=== PATIENT | female | born 1960 | race Caucasian/White ===

== ENCOUNTER → 2017-07-02 | Outpatient (CLI) | payer OTHER | LOC: M.RAD 09:23 | DX: Z12.31 Encounter for screening mammogram for malignant neoplasm of breast (principal) ==

== ENCOUNTER → 2018-03-18 | Outpatient (CLI) | payer OTHER | LOC: M.MRI 14:03 | DX: H93.12 Tinnitus, left ear (principal); E03.9 Hypothyroidism, unspecified ==

== ENCOUNTER → 2018-04-04 | Outpatient (CLI) | payer OTHER ==
[2018-04-04 10:45] LABS: ALBUMIN 3.7 g/dL (3.4-5.0); ALKALINE PHOSPHATASE 73 U/L (46-116); ANION GAP 6 mmol/L (7-16); BUN 17 mg/dL (7-18); CALCIUM 8.7 mg/dL (8.5-10.1); CHLORIDE 107 mmol/L (98-107); CHOLESTEROL 227 mg/dL (<200); CO2 30 mmol/L (21-32); CREATININE 0.8 mg/dL (0.6-1.3); GLUCOSE 95 mg/dL (70-99); HDL CHOLESTEROL 93 mg/dL (>40); LDL CHOLESTEROL 128 mg/dL (<100); POTASSIUM 4.3 mmol/L (3.5-5.1); SGOT 22 U/L (15-37); SGPT 25 U/L (30-65); SODIUM 143 mmol/L (136-145); TC:HDL 2.4 Ratio (Not establshd); TOTAL BILIRUBIN 0.5 mg/dL (<0.1-1.0); TOTAL PROTEIN 7.3 g/dL (6.4-8.2); TRIGLYCERIDE 34 mg/dL (<150); VLDL 7 mg/dL (<40)
[2018-04-04 10:46] LABS: SERUM ASSESSMENT Clear
== END ==
LOC: M.LAB 10:19
PROVIDERS: Family Medicine
DX: Z00.00 Encounter for general adult medical examination without abnormal findings (principal)

== ENCOUNTER → 2018-06-13 | Outpatient (CLI) | payer OTHER | LOC: M.RAD 14:56 | DX: R51 Headache (principal); R42 Dizziness and giddiness ==

== ENCOUNTER → 2019-03-31 | Outpatient (CLI) | payer OTHER ==
[2019-03-31 11:29] LABS: ABSOLUTE EOSINOPHILS 0.2 thou/uL (0.0-0.7); ABSOLUTE LYMPHOCYTES 1.6 thou/uL (0.8-5.3); ABSOLUTE MONOCYTES 0.6 thou/uL (0.0-1.2); ABSOLUTE NEUTROPHILS 3.5 thou/uL (1.6-8.1); BASOPHILS 0.6 %; EOSINOPHILS 2.7 %; HEMATOCRIT 38.5 % (37.0-47.0); LYMPHOCYTES 27.4 %; MCH 31.5 pg (26.0-34.0); MCHC 33.7 g/dL (28.0-37.0); MCV 93.4 fL (80.0-100.0); MONOCYTES 9.5 %; MPV 7.7 fl. (7.2-11.1); NUCLEATED RBCS 0 /100WBC; PLATELET COUNT* 286 thou/uL (150-400); POLYS 59.8 %; RBC 4.12 mil/uL (4.20-5.00); RDW-CV 12.4 % (10.5-14.5); WBC 5.8 thou/uL (4.0-11.0)
[2019-03-31 11:41] LABS: ALBUMIN 3.5 g/dL (3.4-5.0); CALCIUM 9.2 mg/dL (8.5-10.1); CREATININE 0.8 mg/dL (0.6-1.3); POTASSIUM 4.2 mmol/L (3.5-5.1); TOTAL BILIRUBIN 0.3 mg/dL (<0.1-1.0); TOTAL PROTEIN 7.2 g/dL (6.4-8.2)
== END ==
LOC: M.LAB 10:44
PROVIDERS: Family Medicine
DX: E03.9 Hypothyroidism, unspecified (principal); H93.13 Tinnitus, bilateral; R51 Headache

== ENCOUNTER → 2019-05-29 | Outpatient (CLI) | payer OTHER | LOC: M.RAD 11:00 | DX: Z12.31 Encounter for screening mammogram for malignant neoplasm of breast (principal) ==

== ENCOUNTER → 2020-06-20 | Outpatient (CLI) | payer OTHER | LOC: M.RAD 14:59 | PROVIDERS: ATTEND Family Medicine | DX: Z12.31 Encounter for screening mammogram for malignant neoplasm of breast (principal) ==

== ENCOUNTER → 2020-11-27 | Outpatient (CLI) | payer OTHER ==
[2020-11-27 09:44] LABS: ALBUMIN 3.7 g/dL (3.4-5.0); ALKALINE PHOSPHATASE 75 U/L (46-116); BUN 17 mg/dL (7-18); CHOLESTEROL 214 mg/dL (<200); CO2 32 mmol/L (21-32); CREATININE 0.8 mg/dL (0.6-1.3); GLUCOSE 86 mg/dL (70-99); HDL CHOLESTEROL 82 mg/dL (>40); LDL CHOLESTEROL 122 mg/dL (<100); SGOT 23 U/L (15-37); SGPT 30 U/L (30-65); TC:HDL 2.6 Ratio (Not establshd); TOTAL BILIRUBIN 0.4 mg/dL (<0.1-1.0); TOTAL PROTEIN 7.3 g/dL (6.4-8.2); TRIGLYCERIDE 51 mg/dL (<150); VLDL 10 mg/dL (<40)
[2020-11-27 09:57] LABS: ANION GAP 5 mmol/L (7-16); CHLORIDE 105 mmol/L (98-107); POTASSIUM 4.7 mmol/L (3.5-5.1); SODIUM 142 mmol/L (136-145)
[2020-11-27 09:58] LABS: SERUM ASSESSMENT Clear
== END ==
LOC: M.LAB 09:17
PROVIDERS: ATTEND Family Medicine
DX: M51.17 Intervertebral disc disorders with radiculopathy, lumbosacral region (principal); E03.9 Hypothyroidism, unspecified

== ENCOUNTER → 2020-12-04 | Outpatient (CLI) | payer OTHER | LOC: M.MRI 14:35 | PROVIDERS: ATTEND Family Medicine | DX: M51.16 Intervertebral disc disorders with radiculopathy, lumbar region (principal); E03.9 Hypothyroidism, unspecified ==

== ENCOUNTER 2021-06-24 13:06 | Inpatient (IN) | payer OTHER ==
[~2021-06-24] VITALS: Ht 170.2 cm; Wt 77.1 kg
[2021-06-24 13:20] VITALS: BP 153/84
[2021-06-24] MEDS ORDERED: LEVO-T100 MCG PO (13:23)
[2021-06-24] MEDS ORDERED: SUPER THERAVIT1 EACH PO (13:23)
[2021-06-24] MEDS ORDERED: IBUPROFEN 600600 M1 PO (13:24)
--- NOTE | 2021-06-24 13:44 | EKG ---
[place] [address] ELECTROCARDIOGRAM REPORT Name: PEDRO JI Room: [facility].#: [id number] Admission: Attend Phys: Discharge: Date of : 60 Date of Service: 06/24/21 1330 Report #: [id number] THIS REPORT FOR: //name// [facility] ED Test Date: 2021-06-24 Test Time: 13:30:27 Pat Name: PEDRO JI Department: Room: Gender: F Laboratory Clerk: IGNACIA : 1960 Requested By: Davie Nance Order Number: [id number] MD: Ramiro Garrison Measurements Intervals [place] Rate: 68 P: 61 HI: 130 QRS: 38 QRSD: 84 T: 33 QT: 376 QTc: 400 Interpretive Statements Sinus rhythm Consider right atrial enlargement Borderline low voltage, extremity leads No previous ECG available for comparison Electronically Signed On 06-24-2021 13:43:58 [employer] by Ramiro Garrison [email or web address] <ELECTRONICALLY SIGNED> By: Ramiro Garrison MD, [facility] 06/24/21 1343 1330 Ramiro Garrison MD, FACC /EPI
[2021-06-24 13:45] LABS: ABSOLUTE EOSINOPHILS 0.1 thou/uL (0.0-0.7); ABSOLUTE LYMPHOCYTES 1.6 thou/uL (0.8-5.3); ABSOLUTE MONOCYTES 0.5 thou/uL (0.0-1.2); ABSOLUTE NEUTROPHILS 6.7 thou/uL (1.6-8.1); BASOPHILS 0.6 %; EOSINOPHILS 0.6 %; HEMATOCRIT 41.1 % (37.0-47.0); HEMOGLOBIN 13.9 gm/dL (12.0-15.0); MCH 32.2 pg (26.0-34.0); MCHC 33.7 g/dL (28.0-37.0); MCV 95.5 fL (80.0-100.0); MONOCYTES 6.1 %; MPV 7.3 fl. (7.2-11.1); NUCLEATED RBCS 0 /100WBC; PLATELET COUNT* 294 thou/uL (150-400); POLYS 74.7 %; RBC 4.31 mil/uL (4.20-5.00); RDW-CV 12.9 % (10.5-14.5); WBC 8.9 thou/uL (4.0-11.0)
[2021-06-24 13:58] LABS: CREATININE 0.8 mg/dL (0.6-1.3)
[2021-06-24 14:06] LABS: URINE BILIRUBIN NEGATIVE (Negative); URINE BLOOD NEGATIVE (Negative); URINE CLARITY CLEAR; URINE COLOR YELLOW; URINE GLUCOSE-RANDOM NEGATIVE (Negative); URINE KETONES NEGATIVE (Negative); URINE LEUKOCYTES-REFLEX NEGATIVE (Negative); URINE NITRITE-REFLEX NEGATIVE (Negative); URINE PROTEIN NEGATIVE (Negative); URINE UROBILINOGEN 0.2 E.U./dl (0.2-1.0)
[2021-06-24 14:06] LABS: APTT 23.7 Seconds (25.0-31.3); PROTIME 10.5 Seconds (9.20-11.50)
[2021-06-24 14:08] LABS: ALBUMIN 3.7 g/dL (3.4-5.0); TOTAL BILIRUBIN 0.3 mg/dL (<0.1-1.0); TOTAL PROTEIN 7.5 g/dL (6.4-8.2)
[2021-06-24 17:05] VITALS: BP 127/55
[2021-06-24 19:24] VITALS: BP 141/73
[2021-06-24 20:00] VITALS: BP 138/70
[2021-06-24] MEDS ORDERED: MAGNESIUM250 M1 PO (20:56)
[2021-06-24] MEDS ORDERED: METRONIDAZOLE500 M4 (20:56)
[2021-06-24] MEDS ORDERED: METRONIDAZOLE500 M4 PO (20:57)
[2021-06-25] VITALS (7 sets, daily range): BP systolic 90–115; BP diastolic 40–68
[2021-06-25 04:53] LABS: ABSOLUTE EOSINOPHILS 0.1 thou/uL (0.0-0.7); ABSOLUTE LYMPHOCYTES 1.9 thou/uL (0.8-5.3); ABSOLUTE MONOCYTES 0.5 thou/uL (0.0-1.2); ABSOLUTE NEUTROPHILS 3.6 thou/uL (1.6-8.1); BASOPHILS 0.4 %; EOSINOPHILS 2.1 %; HEMATOCRIT 37.3 % (37.0-47.0); HEMOGLOBIN 12.5 gm/dL (12.0-15.0); LYMPHOCYTES 30.6 %; MCHC 33.5 g/dL (28.0-37.0); MCV 95.6 fL (80.0-100.0); MONOCYTES 7.6 %; MPV 7.1 fl. (7.2-11.1); NUCLEATED RBCS 0 /100WBC; PLATELET COUNT* 258 thou/uL (150-400); POLYS 59.3 %; RBC 3.91 mil/uL (4.20-5.00); RDW-CV 12.5 % (10.5-14.5); WBC 6.1 thou/uL (4.0-11.0)
[2021-06-25 05:12] LABS: CALCIUM 8.2 mg/dL (8.5-10.1); CREATININE 0.8 mg/dL (0.6-1.3)
--- NOTE | 2021-06-25 16:27 | 2DMMODE ---
[place] [address] 2 D/M-MODE ECHOCARDIOGRAM Name: PEDRO JI Room: [address] IN [facility]#: [id number] Admission: 06/24/21 Attend Phys: Codey Santana, Discharge: Date of : 60 Date of Service: 06/25/21 1627 Report #: [id number] THIS REPORT FOR: cc: Tala Chung,Ramiro Kumar MD [facility] ~ APPROVED REPORT Study performed: 06/25/2021 15:10:33 EXAM: Comprehensive 2D, Doppler, and color-flow Echocardiogram Patient Location: In-Patient Room #: 229 Status: routine BSA: 1.88 HR: 61 bpm BP: 104/40 mmHg Rhythm: NSR Other Information Study Quality: Good Indications dizziness 2D Dimensions IVSd: 9.62 (7-11mm) LVOT Diam: 20.14 (18-24mm) LVDd: 40.40 mm PWd: 9.44 (7-11mm) Ascending Ao: 29.44 (22-36mm) LVDs: 24.56 (25-40mm) Aortic Root: 30.33 mm Volumes Left Atrial Volume (Systole) LA ESV Index: 17.90 mL/m2 Aortic Valve AoV Peak Geovanny.: 1.34 m/s AO Peak Gr.: 7.23 mmHg LVOT Max P.57 mmHg AO Mean Gr.: 3.86 mmHg LVOT Mean P.01 mmHg LVOT Max V: 1.07 m/s AO V2 VTI: 28.59 cm LVOT Mean V: 0.64 m/s CARMELINA (VTI): 2.61 cm2 LVOT V1 VTI: 23.44 [place] [address] 2 D/M-MODE ECHOCARDIOGRAM Name: PEDRO JI Room: [address] IN [facility]#: [id number] Admission: 06/24/21 Attend Phys: Codey Santana, Discharge: Date of : 60 Date of Service: 06/25/21 1627 Report #: [id number] Mitral Valve E/A Ratio: 1.33 MV Decel. Time: 211.34 ms MV E Max Geovanny.: 0.84 m/s MV PHT: 61.29 ms MVA (PHT): 3.59 cm2 TDI E/Lateral E': 6.00 E/Medial E': 6.46 Medial E' Geovanny.: 0.13 m/s Lateral E' Geovanny.: 0.14 m/s Pulmonary Valve PV Peak Geovanny.: 0.88 m/s PV Peak Gr.: 3.08 mmHg Tricuspid Valve RAP Estimate: 5.00 mmHg TR Peak Gr.: 17.57 mmHg RVSP: 22.00 mmHg PA Pressure: 22.00 mmHg Left Ventricle The left ventricle is normal size. There is normal LV segmental wall motion. There is normal left ventricular wall thickness. Left ventricular systolic function is normal. The left ventricular ejection fraction is within the normal range. LVEF is 60-65%. The left ventricular diastolic function is normal. Right Ventricle The right ventricle is normal size. The right ventricular systolic function is normal. Atria The left atrium size is normal. The right atrium size is normal. Aortic Valve The aortic valve is normal in structure. No aortic regurgitation is present. There is no aortic valvular stenosis. Mitral Valve The mitral valve is normal in structure. Mild mitral regurgitation. No evidence of mitral valve stenosis. Tricuspid Valve The tricuspid valve is normal in structure. Trace tricuspid regurgitation. [place] [address] 2 D/M-MODE ECHOCARDIOGRAM Name: PEDRO JI Room: [address] IN [facility]#: [id number] Admission: 06/24/21 Attend Phys: Codey Santana, Discharge: Date of : 60 Date of Service: 06/25/21 1627 Report #: [id number] Pulmonic Valve The pulmonary valve is normal in structure. There is no pulmonic valvular regurgitation. Great Vessels The aortic root is normal in size. IVC is normal in size and collapses >50% with inspiration. Pericardium There is no pericardial effusion. <Conclusion> Left ventricular systolic function is normal. The left ventricular ejection fraction is within the normal range. <ELECTRONICALLY SIGNED> By: Ramiro Garrison MD, [facility] 06/25/21 1627 162 162 Ramiro Garrison MD, FACC /INF
[2021-06-26 00:19] VITALS: BP 114/65
[2021-06-26 04:39] VITALS: BP 110/46
[2021-06-26 08:30] VITALS: BP 118/53
[2021-06-26 12:00] VITALS: BP 93/47
[2021-06-26] MEDS ORDERED: MECLIZINE HCL25 M1 PO (13:09)
[2021-06-26 14:17] VITALS: BP 93/47
--- NOTE | 2021-06-28 14:10 | CON ---
[address] [address] CONSULTATION Name: PEDRO JI Room: [address] IN [facility]#: [id number] Admission: 06/24/21 Attend Phys: Codey Santana MD Discharge: 06/26/21 Date of : 60 Report #: [id number] THIS REPORT FOR: cc: Tala Chung,Ramiro Kumar MD [facility] ~ cc: Tala Chung DO DATE OF CONSULTATION: 06/25/2021 HISTORY OF PRESENT ILLNESS: The patient is a 61-year-old white female who I was asked to see in the hospital today after she complained of dizzy spells. The patient states that she has dizzy spells almost every winter. She apparently had a stress echocardiogram in the past at [place] that showed no significant heart disease. She stays very active. She has been evaluated by ENT in the past and was given Flonase nasal spray. The past few weeks, dizzy spells have been worse. It usually occurs while she is standing or sitting. She will feel lightheaded as if she is spinning. She has had to sit down. She has had no syncope. The spells do not occur while she is lying. She denies any vomiting, diarrhea or bleeding. She had no fever or cough. She denies any decreased appetite. Because of the episodes, she finally came to the Emergency Room yesterday and admitted for further evaluation and treatment. She denied any chest pain. She does note that Wednesday, she had bad episodes when she stood up, felt nauseated, her heart was racing. PAST MEDICAL HISTORY: She has had wisdom tooth removal, tubal ligation. No history of hypertension, diabetes, hyperlipidemia. CURRENT MEDICATIONS: Include Synthroid. ALLERGIES: SHE HAS AN ALLERGY TO PENICILLIN. FAMILY HISTORY: Father with bypass surgery. SOCIAL HISTORY: She is . Her is actually a patient of mine. 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 She quit smoking 35 years ago, rarely drinks alcohol. REVIEW OF SYSTEMS: She does have a chronic back pain. No history of stroke, liver disease, kidney disease or cancer. She has a history of genital herpes in the past. No psychiatric illness. PHYSICAL EXAMINATION: GENERAL: Revealed middle-aged female, appeared in no acute distress. VITAL SIGNS: She had a blood pressure 130/60, pulse 68. [place] [address] CONSULTATION Name: PEDRO JI Room: [address]#: [id number] Admission: 06/24/21 Attend Phys: Codey Santana MD Discharge: 06/26/21 Date of : 60 Report #: [id number] HEENT: She was anicteric. Conjunctivae pink. Mucosa moist. NECK: Veins not distended. No carotid bruits. Neck is supple. CHEST: Clear to auscultation. HEART: Regular rate and rhythm. No murmur. ABDOMEN: Soft. EXTREMITIES: Had no edema. Posterior tibial pulse 2+ bilaterally. SKIN: Warm and dry. NEUROLOGIC: Nonfocal. DIAGNOSTIC DATA: ECG on admission yesterday showed a sinus rhythm with no significant ST or T-wave changes. Workup in the Emergency Room yesterday, she had a portable chest x-ray that showed normal heart size, clear lung degroot. She actually had a CT scan of the head without contrast that was unremarkable. LABORATORY DATA: Creatinine 0.8. Liver function studies were normal. High sensitivity troponin was 4. BNP 36. In November, her cholesterol was 214, triglycerides 51, HDL 82, LDL 122. TSH 1.8, B12 of 731 in 2017. Glycosylated hemoglobin was 5.3 in 2017, hemoglobin 12.5. Her COVID antigen stat test was negative. She did receive the vaccine. Urinalysis was negative for protein. IMPRESSION AND RECOMMENDATIONS: 1. Dizzy spells, reason unclear. Possible vertigo. I would discharge the patient with a cardiac specialist to rule out any arrhythmia. 2. Chronic back pain. 3. Previous tobacco abuse. <ELECTRONICALLY SIGNED> By: Ramiro Garrison MD, FACC 06/28/21 1410 1313 1946Dasimon Garrison MD, FACC /nt
== END 2021-06-26 15:55 | disposition home or self-care (01) | DRG 149 ==
LOC: M.ERS 13:06 → M.2W 14:36 → M.TBA-ER 14:36 → M.2W 17:36
PROVIDERS: Family Medicine; ADMIT Internal Medicine; ATTEND Internal Medicine
DX: R42 Dizziness and giddiness (principal); E11.9 Type 2 diabetes mellitus without complications; E78.5 Hyperlipidemia, unspecified; I10 Essential (primary) hypertension; H93.19 Tinnitus, unspecified ear; R51.9 Headache, unspecified; G89.29 Other chronic pain; M54.9 Dorsalgia, unspecified; R00.2 Palpitations; E03.9 Hypothyroidism, unspecified; Z20.822 Contact with and (suspected) exposure to COVID-19; Z82.49 Family history of ischemic heart disease and other diseases of the circulatory system; Z79.899 Other long term (current) drug therapy; Z88.0 Allergy status to penicillin; Z87.891 Personal history of nicotine dependence

== ENCOUNTER → 2021-08-08 | Outpatient (CLI) | payer OTHER ==
[~2021-08-08] MED LIST: IBUPROFEN 600600 M1 PO; LEVO-T100 MCG PO; MAGNESIUM250 M1 PO; MECLIZINE HCL25 M1 PO; METRONIDAZOLE500 M4; METRONIDAZOLE500 M4 PO; SUPER THERAVIT1 EACH PO
== END ==
LOC: M.LAB 16:03
PROVIDERS: ATTEND Family Medicine
DX: E03.9 Hypothyroidism, unspecified (principal); E04.2 Nontoxic multinodular goiter; R47.9 Unspecified speech disturbances

== ENCOUNTER → 2021-08-28 | Outpatient (CLI) | payer OTHER | LOC: M.ULTRA 11:30 | PROVIDERS: ATTEND Family Medicine | DX: R76.8 Other specified abnormal immunological findings in serum (principal) ==